=== PATIENT | male | born 1975 | race African-American/Black ===

== ENCOUNTER 2017-02-25 06:57 | Emergency (ER) | payer SELFPAY ==
[~2017-02-25] VITALS: Ht 193 cm; Wt 87.4 kg
[2017-02-25] MEDS ORDERED: HYDROCODONE/ACETAMINOPHEN 5/325MG TABLET PO ONE (08:15)
[2017-02-25 09:30] VITALS: BP 114/83
== END 2017-02-25 09:43 | disposition home or self-care (01) ==
LOC: ER 07:20
DX: S63.501A Unspecified sprain of right wrist, initial encounter (principal); Y08.89XA Assault by other specified means, initial encounter; Y93.89 Activity, other specified; Y92.89 Other specified places as the place of occurrence of the external cause; Z88.0 Allergy status to penicillin; F17.210 Nicotine dependence, cigarettes, uncomplicated
CPT/HCPCS: 73110; 73130; 99284; Z7610

== ENCOUNTER 2018-06-20 02:16 | Emergency (ER) | payer SELFPAY ==
[~2018-06-20] VITALS: Ht 188 cm; Wt 96.0 kg
[2018-06-20] MEDS ORDERED: FLUORESCEIN SODIUM 1MG/STRIP OP ONE (02:45)
[2018-06-20] MEDS ORDERED: TETRACAINE 0.5% OPHTH DROPS 4ML OP ONE (02:45)
[2018-06-20] MEDS ORDERED: HYDROCODONE/ACETAMINOPHEN 5/325MG TABLET PO ONE (03:15)
[2018-06-20 04:36] VITALS: BP 116/81
== END 2018-06-20 04:44 | disposition home or self-care (01) ==
LOC: ER 02:16
DX: S05.11XA Contusion of eyeball and orbital tissues, right eye, initial encounter (principal); S09.8XXA Other specified injuries of head, initial encounter; F12.10 Cannabis abuse, uncomplicated; F17.200 Nicotine dependence, unspecified, uncomplicated; Z88.0 Allergy status to penicillin; Z98.890 Other specified postprocedural states; Y09 Assault by unspecified means; Y93.89 Activity, other specified; Y92.89 Other specified places as the place of occurrence of the external cause
CPT/HCPCS: 99283

== ENCOUNTER 2019-06-23 04:36 | Emergency (ER) | payer SELFPAY ==
[~2019-06-23] VITALS: Ht 188 cm; Wt 210.0 kg
[2019-06-23] MEDS ORDERED: SODIUM CHLORIDE 0.9% 1,000 ML IV ONE (05:28)
[2019-06-23 05:50] LABS: CLARITY URINE CLEAR (CLEAR); COLOR URINE YELLOW (YELLOW); KETONES URINE NEGATIVE (NEGATIVE); LEUKOCYTE ESTERASE URINE NEGATIVE (NEGATIVE); NITRITE URINE NEGATIVE (NEGATIVE); OCCULT BLOOD URINE NEGATIVE (NEGATIVE); PROTEIN URINE NEGATIVE (NEGATIVE); SPECIFIC GRAVITY URINE 1.003 (1.005-1.030); UROBILINOGEN URINE 0.2 E.U./dL (0.2-1.0)
[2019-06-23 06:03] LABS: *AMPHETAMINES SCREEN URINE PRESUMTIVE POSITIVE (NEGATIVE); *BARBITURATES SCREEN URINE NEGATIVE (NEGATIVE)
[2019-06-23 06:04] LABS: *BENZODIAZEPINES SCREEN URINE NEGATIVE (NEGATIVE); *COCAINE SCREEN URINE PRESUMTIVE POSITIVE (NEGATIVE); METHADONE URINE SCREEN NEGATIVE (NEGATIVE)
[2019-06-23 06:05] LABS: CANNABINOID URINE SCREEN PRESUMTIVE POSITIVE (NEGATIVE); OPIATES URINE SCREEN NEGATIVE (NEGATIVE); PHENCYCLIDINE URINE SCREEN NEGATIVE (NEGATIVE)
[2019-06-23 06:23] LABS: BASOPHILS % 0.7 % (0.0-2.0); EOSINOPHILS % 0.2 % (0.0-5.0); HEMATOCRIT. 48.2 % (42.0-52.0); HEMOGLOBIN. 16.6 g/dL (14.0-18.0); LYMPHOCYTES % 15.9 % (20.0-50.0); MEAN CORPUSCULAR HEMOGLOBIN 31.5 pg (28.0-32.0); MEAN CORPUSCULAR VOLUME 91.7 fL (80.0-94.0); MEAN PLATELET VOLUME 8.9 fl (7.4-10.4); MONOCYTES % 9.7 % (2.0-8.0); NEUTROPHILS % 73.5 % (40.0-76.0); PLATELET 218 x1000/uL (130-400); RED BLOOD CELL COUNT 5.26 mill/uL (4.7-6.1); RED CELL DISTRIBUTION WIDTH 13.1 % (11.6-14.6)
[2019-06-23 06:24] LABS: CHLORIDE 107 mEq/L (98-107)
[2019-06-23 06:29] LABS: ETHANOL BLOOD < 10 mg/dL
[2019-06-23 06:31] VITALS: BP 136/80
[2019-06-23] MEDS ORDERED: LORAZEPAM 2MG/ML CPJ IV ONE (06:45)
== END 2019-06-23 07:30 | disposition left against medical advice (07) ==
LOC: ER 04:36
DX: T40.7X1A Poisoning by cannabis (derivatives), accidental (unintentional), initial encounter (principal); R00.2 Palpitations; R07.89 Other chest pain; F12.188 Cannabis abuse with other cannabis-induced disorder; F14.10 Cocaine abuse, uncomplicated; F15.10 Other stimulant abuse, uncomplicated; R03.0 Elevated blood-pressure reading, without diagnosis of hypertension; Y92.89 Other specified places as the place of occurrence of the external cause; F17.210 Nicotine dependence, cigarettes, uncomplicated; Z71.6 Tobacco abuse counseling
CPT/HCPCS: 36415; 71045; 80053; 80305; 80320; 81003; 84484; 85025; 93005; 99284; 99406; J7030; G0480

== ENCOUNTER 2019-07-22 18:54 | Emergency (ER) | payer SELFPAY ==
[~2019-07-22] VITALS: Ht 188 cm; Wt 91.0 kg
[2019-07-22] MEDS ORDERED: VISCOUS LIDOCAINE 2% 15 ML UDC PO STA (23:46)
[2019-07-22] MEDS ORDERED: ONDANSETRON 4MG ODT PO STA (23:46)
[2019-07-22] MEDS ORDERED: MAGNESIUM/ALUMINUM HYDROXIDE/SIMETHICONE 30ML UDC PO STA (23:46)
[2019-07-22] MEDS ORDERED: KETOROLAC 60MG/2ML VIAL IM STA (23:46)
[2019-07-23] MEDS ORDERED: FAMOTIDINE 20MG TABLET PO ONE
[2019-07-23 00:06] LABS: CLARITY URINE CLEAR (CLEAR); COLOR URINE DARK YELLOW (YELLOW); KETONES URINE 2+ (NEGATIVE); LEUKOCYTE ESTERASE URINE TRACE (NEGATIVE); NITRITE URINE NEGATIVE (NEGATIVE); OCCULT BLOOD URINE NEGATIVE (NEGATIVE); PH URINE 7.5 (4.5-8.0); PROTEIN URINE 1+ (NEGATIVE); SPECIFIC GRAVITY URINE 1.024 (1.005-1.030)
[2019-07-23 00:24] LABS: HEMOGLOBIN. 16.7 g/dL (14.0-18.0); MEAN CORPUSCULAR HEMOGLOBIN 31.8 pg (28.0-32.0); MEAN CORPUSCULAR VOLUME 89.6 fL (80.0-94.0); MEAN PLATELET VOLUME 8.7 fl (7.4-10.4); PLATELET 234 x1000/uL (130-400); RED BLOOD CELL COUNT 5.25 mill/uL (4.7-6.1); RED CELL DISTRIBUTION WIDTH 12.9 % (11.6-14.6)
[2019-07-23 00:29] LABS: CHLORIDE 103 mEq/L (98-107)
[2019-07-23 00:34] LABS: ETHANOL BLOOD < 10 mg/dL
[2019-07-23 01:33] LABS: PLATELET ESTIMATE NORMAL
[2019-07-23 01:43] VITALS: BP 130/89
[2019-07-23 10:15] LABS: *AMPHETAMINES SCREEN URINE PRESUMTIVE POSITIVE (NEGATIVE); *BARBITURATES SCREEN URINE NEGATIVE (NEGATIVE); *BENZODIAZEPINES SCREEN URINE NEGATIVE (NEGATIVE); *COCAINE SCREEN URINE PRESUMTIVE POSITIVE (NEGATIVE)
[2019-07-23 10:18] LABS: CANNABINOID URINE SCREEN PRESUMTIVE POSITIVE (NEGATIVE); OPIATES URINE SCREEN NEGATIVE (NEGATIVE); PHENCYCLIDINE URINE SCREEN NEGATIVE (NEGATIVE)
[2019-07-23 10:27] LABS: METHADONE URINE SCREEN NEGATIVE (NEGATIVE)
== END 2019-07-23 01:44 | disposition home or self-care (01) ==
LOC: ER 18:54
DX: K29.20 Alcoholic gastritis without bleeding (principal); F10.10 Alcohol abuse, uncomplicated; F14.10 Cocaine abuse, uncomplicated; F12.10 Cannabis abuse, uncomplicated; Y90.0 Blood alcohol level of less than 20 mg/100 ml; Z88.0 Allergy status to penicillin
CPT/HCPCS: 36415; 80053; 80305; 80320; 81003; 83690; 85025; 96372; 99284; J1885; Q0162; G0480

== ENCOUNTER 2019-08-30 16:34 | Emergency (ER) | payer SELFPAY ==
[~2019-08-30] VITALS: Ht 180.3 cm; Wt 90.0 kg
[2019-08-30] MEDS ORDERED: SODIUM CHLORIDE 0.9% 1,000 ML IV ONE (16:57)
[2019-08-30] MEDS ORDERED: LORAZEPAM 2MG/ML CPJ IM ONE (17:00)
[2019-08-30] MEDS ORDERED: OLANZAPINE 10 MG/VIAL IM ONE (17:00)
[2019-08-30] MEDS ORDERED: TETANUS, DIPHTHERIA, PERTUSSIS VAC/PF 0.5ML (>7YR OLD) IM ONE (17:00)
[2019-08-30 17:42] LABS: BASOPHILS % 0.6 % (0.0-2.0); EOSINOPHILS % 0.6 % (0.0-5.0); HEMATOCRIT. 48.9 % (42.0-52.0); HEMOGLOBIN. 16.9 g/dL (14.0-18.0); LYMPHOCYTES % 24.3 % (20.0-50.0); MEAN CORPUSCULAR HEMOGLOBIN 32.5 pg (28.0-32.0); MEAN CORPUSCULAR VOLUME 93.7 fL (80.0-94.0); MEAN PLATELET VOLUME 8.7 fl (7.4-10.4); MONOCYTES % 10.7 % (2.0-8.0); NEUTROPHILS % 63.8 % (40.0-76.0); PLATELET 221 x1000/uL (130-400); RED BLOOD CELL COUNT 5.22 mill/uL (4.7-6.1); RED CELL DISTRIBUTION WIDTH 14.4 % (11.6-14.6)
[2019-08-30 17:47] LABS: CHLORIDE 110 mEq/L (98-107)
[2019-08-30 17:51] LABS: ETHANOL BLOOD 242 mg/dL
[2019-08-30 20:24] LABS: *COCAINE SCREEN URINE PRESUMTIVE POSITIVE (NEGATIVE); METHADONE URINE SCREEN NEGATIVE (NEGATIVE)
[2019-08-30 20:25] LABS: *AMPHETAMINES SCREEN URINE NEGATIVE (NEGATIVE); *BARBITURATES SCREEN URINE NEGATIVE (NEGATIVE); *BENZODIAZEPINES SCREEN URINE NEGATIVE (NEGATIVE); CANNABINOID URINE SCREEN NEGATIVE (NEGATIVE); OPIATES URINE SCREEN NEGATIVE (NEGATIVE); PHENCYCLIDINE URINE SCREEN NEGATIVE (NEGATIVE)
[2019-08-30 22:45] VITALS: BP 116/72
== END 2019-08-31 00:16 | disposition home or self-care (01) ==
LOC: ER 16:34
DX: T51.8X1A Toxic effect of other alcohols, accidental (unintentional), initial encounter (principal); G92 Toxic encephalopathy; S09.8XXA Other specified injuries of head, initial encounter; S01.511A Laceration without foreign body of lip, initial encounter; F14.10 Cocaine abuse, uncomplicated; Z88.0 Allergy status to penicillin; Y08.89XA Assault by other specified means, initial encounter; Y93.89 Activity, other specified; Y99.8 Other external cause status; Y92.89 Other specified places as the place of occurrence of the external cause
CPT/HCPCS: 36415; 70450; 71045; 72170; 73030; 80053; 80305; 80320; 82962; 83690; 83880; 84484; 85025; 86850; 86900; 86901; 90471; 90715; 93005; 96372; 99285; J2060; J3490; J7030; G0480

== ENCOUNTER 2019-10-05 04:36 | Emergency (ER) | payer MEDICAID, OTHER ==
[~2019-10-05] VITALS: Ht 188 cm; Wt 95.0 kg
[2019-10-05] MEDS ORDERED: DEXAMETHASONE 4MG/ML 1ML VIAL IM ONE (06:30)
[2019-10-05] MEDS ORDERED: PEN G BENZ/PEN G PROCAINE CR 1.2 MMU/2 ML IM ONE (06:30)
[2019-10-05] MEDS ORDERED: KETOROLAC 60MG/2ML VIAL IM ONE (06:30)
[2019-10-05] MEDS ORDERED: CLINDAMYCIN HCL 150MG CAPSULE PO ONE (07:30)
[2019-10-05 08:33] VITALS: BP 124/81
== END 2019-10-05 08:33 | disposition home or self-care (01) ==
LOC: ER 04:36
DX: J03.90 Acute tonsillitis, unspecified (principal); R59.0 Localized enlarged lymph nodes; F12.10 Cannabis abuse, uncomplicated; F17.200 Nicotine dependence, unspecified, uncomplicated; Z88.0 Allergy status to penicillin
CPT/HCPCS: 96372; 99284; J0558; J1100; J1885

== ENCOUNTER 2019-10-09 02:37 | Emergency (ER) | payer MEDICAID ==
[~2019-10-09] VITALS: Ht 188 cm; Wt 91.0 kg
[2019-10-09] MEDS ORDERED: MORPHINE SULFATE 4 MG/ML CPJ (NOT FOR IM USE) IV STA (03:10)
[2019-10-09] MEDS ORDERED: ONDANSETRON HCL 4MG/2ML INJ IV STA (03:10)
[2019-10-09] MEDS ORDERED: DEXAMETHASONE 10 MG/ML VIAL IV ONE (03:30)
[2019-10-09 03:38] LABS: BASOPHILS % 0.5 % (0.0-2.0); EOSINOPHILS % 0.2 % (0.0-5.0); HEMATOCRIT. 49.3 % (42.0-52.0); HEMOGLOBIN. 17.2 g/dL (14.0-18.0); LYMPHOCYTES % 13.1 % (20.0-50.0); MEAN CORPUSCULAR HEMOGLOBIN 32.3 pg (28.0-32.0); MEAN CORPUSCULAR VOLUME 92.8 fL (80.0-94.0); MEAN PLATELET VOLUME 8.9 fl (7.4-10.4); MONOCYTES % 9.5 % (2.0-8.0); NEUTROPHILS % 76.7 % (40.0-76.0); PLATELET 242 x1000/uL (130-400); RED BLOOD CELL COUNT 5.31 mill/uL (4.7-6.1)
[2019-10-09 03:39] LABS: CHLORIDE 104 mEq/L (98-107)
[2019-10-09] MEDS ORDERED: CLINDAMYCIN 600MG PREMIX 50 ML IV SCH (03:45)
[2019-10-09] MEDS ORDERED: CLINDAMYCIN 600 MG in DEXTROSE 5% WATER 50 ML IV ONE (03:45)
[2019-10-09 04:15] LABS: INR 0.9; PROTHROMBIN TIME 10.3 sec (9.6-11.0)
[2019-10-09 04:41] VITALS: BP 132/79
== END 2019-10-09 04:45 | disposition home or self-care (01) ==
LOC: ER 02:37
DX: J03.90 Acute tonsillitis, unspecified (principal); R03.0 Elevated blood-pressure reading, without diagnosis of hypertension; Z88.0 Allergy status to penicillin
CPT/HCPCS: 36415; 80053; 85025; 85610; 96374; 96375; 99284; J1100; J2270; J2405; J3490; J7060

== ENCOUNTER 2019-10-31 22:25 | Inpatient (IN) | payer MEDICAID, OTHER ==
[~2019-10-31] VITALS: Ht 188 cm; Wt 91.2 kg
[2019-10-31] MEDS ORDERED: MORPHINE SULFATE 4 MG/ML CPJ (NOT FOR IM USE) IV STA (22:43)
[2019-10-31] MEDS ORDERED: ONDANSETRON HCL 4MG/2ML INJ IV STA (22:43)
[2019-10-31] MEDS ORDERED: SODIUM CHLORIDE 0.9% 1,000 ML IV ONE (22:43)
[2019-10-31 23:14] LABS: CHLORIDE 104 mEq/L (98-107)
[2019-10-31] MEDS ORDERED: MIDAZOLAM HCL 2 MG/2 ML VIAL IV ONE (23:15)
[2019-10-31 23:16] LABS: INR 0.9; PARTIAL THROMBOPLASTIN TIME 25.3 sec (23.4-31.0); PROTHROMBIN TIME 10.2 sec (9.6-11.0)
[2019-10-31 23:41] LABS: BASOPHILS % 0.5 % (0.0-2.0); EOSINOPHILS % 0.5 % (0.0-5.0); HEMATOCRIT. 47.5 % (42.0-52.0); HEMOGLOBIN. 16.7 g/dL (14.0-18.0); LYMPHOCYTES % 20.5 % (20.0-50.0); MEAN CORPUSCULAR HEMOGLOBIN 33.1 pg (28.0-32.0); MEAN PLATELET VOLUME 8.8 fl (7.4-10.4); MONOCYTES % 5.5 % (2.0-8.0); PLATELET 249 x1000/uL (130-400); RED BLOOD CELL COUNT 5.05 mill/uL (4.7-6.1); RED CELL DISTRIBUTION WIDTH 13.9 % (11.6-14.6)
[2019-11-01] MEDS ORDERED: IOHEXOL-350 100 ML BOTTLE ONE (01:15)
[2019-11-01] MEDS ORDERED: ASPIRIN 325MG TABLET PO ONE (01:30)
[2019-11-01 05:15] VITALS: BP 131/90
[2019-11-01] MEDS ORDERED: DOCUSATE SODIUM 100MG CAPSULE PO PRN (07:00)
[2019-11-01] MEDS ORDERED: ACETAMINOPHEN 325MG TABLET PO PRN (07:00)
[2019-11-01] MEDS ORDERED: CLONIDINE 0.1MG TABLET PO PRN (07:00)
[2019-11-01] MEDS ORDERED: IPRATROPIUM/ALBUTEROL 0.5-3(2.5)MG/3ML NEB HHN PRN (07:00)
[2019-11-01] MEDS ORDERED: HYDRALAZINE 20MG/ML VIAL IV PRN (07:00)
[2019-11-01] MEDS ORDERED: DIPHENHYDRAMINE 50MG/ML VIAL IV PRN (07:00)
[2019-11-01] MEDS ORDERED: MAGNESIUM/ALUMINUM HYDROXIDE/SIMETHICONE 30ML UDC PO PRN (07:00)
[2019-11-01] MEDS ORDERED: GUAIFENESIN 200MG/10ML SUGAR FREE UDC PO PRN (07:00)
[2019-11-01] MEDS ORDERED: LORAZEPAM 2MG/ML CPJ IV PRN (07:00)
[2019-11-01] MEDS ORDERED: HYDROCODONE/ACETAMINOPHEN 10/325MG TABLET PO PRN (07:00)
[2019-11-01] MEDS ORDERED: ONDANSETRON HCL 4MG/2ML INJ IV PRN (07:00)
[2019-11-01 08:00] VITALS: BP_SYST 130; BP_SYST 136; BP_DIAS 76; BP_DIAS 88
[2019-11-01] MEDS: ENOXAPARIN 40MG/0.4ML SYR SUBCUT SCH (08:42)
[2019-11-01] MEDS: MORPHINE SULFATE 2 MG/ML CPJ (NOT FOR IM USE) IV PRN ×2 (08:43→18:11)
[2019-11-01 12:00] VITALS: BP 128/79
[2019-11-01] MEDS: SODIUM CHLORIDE 0.9% INJ 3ML FLUSH IVF SCH ×2 (13:09→21:03)
[2019-11-01 15:53] LABS: CREATINE KINASE 535 IU/L (39-308)
[2019-11-01 15:54] LABS: CREATINE KINASE MB FRACTION 2.4 ng/mL (0.5-3.6)
[2019-11-01 16:00] VITALS: BP 116/80
[2019-11-02] VITALS: BP 123/86
[2019-11-02 00:31] LABS: CREATINE KINASE 467 IU/L (39-308)
[2019-11-02 00:32] LABS: CREATINE KINASE MB FRACTION 1.9 ng/mL (0.5-3.6)
[2019-11-02 04:00] VITALS: BP 124/77
[2019-11-02] MEDS: MORPHINE SULFATE 2 MG/ML CPJ (NOT FOR IM USE) IV PRN (04:15)
[2019-11-02] MEDS: SODIUM CHLORIDE 0.9% INJ 3ML FLUSH IVF SCH ×2 (04:16→15:41)
[2019-11-02 06:52] LABS: CHLORIDE 105 mEq/L (98-107)
[2019-11-02 07:04] LABS: HEMATOCRIT. 43.6 % (42.0-52.0); HEMOGLOBIN. 15.1 g/dL (14.0-18.0); MEAN CORPUSCULAR HEMOGLOBIN 32.8 pg (28.0-32.0); MEAN CORPUSCULAR VOLUME 94.5 fL (80.0-94.0); MEAN PLATELET VOLUME 9.2 fl (7.4-10.4); PLATELET 185 x1000/uL (130-400); RED BLOOD CELL COUNT 4.61 mill/uL (4.7-6.1); RED CELL DISTRIBUTION WIDTH 13.3 % (11.6-14.6)
[2019-11-02 08:00] VITALS: BP 118/68
[2019-11-02] MEDS: ENOXAPARIN 40MG/0.4ML SYR SUBCUT SCH (09:25)
[2019-11-02 10:25] LABS: PLATELET ESTIMATE NORMAL
[2019-11-02 12:00] VITALS: BP 125/87
[2019-11-02 18:36] LABS: *AMPHETAMINES SCREEN URINE NEGATIVE (NEGATIVE); *BARBITURATES SCREEN URINE NEGATIVE (NEGATIVE); *BENZODIAZEPINES SCREEN URINE NEGATIVE (NEGATIVE); *COCAINE SCREEN URINE PRESUMTIVE POSITIVE (NEGATIVE); METHADONE URINE SCREEN NEGATIVE (NEGATIVE); OPIATES URINE SCREEN PRESUMTIVE POSITIVE (NEGATIVE)
[2019-11-02 18:37] LABS: CANNABINOID URINE SCREEN NEGATIVE (NEGATIVE); PHENCYCLIDINE URINE SCREEN NEGATIVE (NEGATIVE)
== END 2019-11-02 17:05 | disposition left against medical advice (07) | DRG 115 ==
LOC: ER 22:25 → MICUSO 11-01 01:45 → 5WST 11-01 05:02
PROVIDERS: ADMIT Internal Medicine; ATTEND Internal Medicine
DX: S02.2XXA Fracture of nasal bones, initial encounter for closed fracture (principal); R47.01 Aphasia; F17.210 Nicotine dependence, cigarettes, uncomplicated; S00.03XA Contusion of scalp, initial encounter; S00.83XA Contusion of other part of head, initial encounter; Y09 Assault by unspecified means; Z88.0 Allergy status to penicillin; Y93.89 Activity, other specified; Y92.89 Other specified places as the place of occurrence of the external cause; Y99.8 Other external cause status
CPT/HCPCS: 36415; 70496; 70498; 80053; 80305; 82550; 82553; 84484; 85025; 86850; 86900; 96374; 99291; J1650; J2250; J2270; J2405; J7030; Q9967

== ENCOUNTER 2020-02-10 22:49 | Emergency (ER) | payer SELFPAY ==
[~2020-02-10] VITALS: Ht 188 cm; Wt 100.0 kg
[2020-02-10] MEDS ORDERED: LIDOCAINE HCL/PF 1% 10 MG/ML 5ML VIAL IJ ONE (23:30)
[2020-02-10] MEDS ORDERED: BACITRACIN ZINC OINT UDPKT TOP ONE (23:30)
[2020-02-10] MEDS ORDERED: ACETAMINOPHEN WITH CODEINE 300/30MG TABLET PO ONE (23:30)
[2020-02-11 00:27] VITALS: BP 121/74
== END 2020-02-11 00:36 | disposition home or self-care (01) ==
LOC: ER 22:49
DX: S51.812A Laceration without foreign body of left forearm, initial encounter (principal); Z88.0 Allergy status to penicillin; X58.XXXA Exposure to other specified factors, initial encounter; Y93.89 Activity, other specified; Y92.89 Other specified places as the place of occurrence of the external cause; Y99.8 Other external cause status
CPT/HCPCS: 12002; 99283; J3490

== ENCOUNTER 2020-02-24 12:55 | Emergency (ER) | payer SELFPAY ==
[~2020-02-24] VITALS: Ht 188 cm; Wt 102.0 kg
[2020-02-24 12:57] VITALS: BP 140/93
[2020-02-24] MEDS ORDERED: BACITRACIN ZINC OINT UDPKT TOP ONE (13:30)
== END 2020-02-24 13:40 | disposition home or self-care (01) ==
LOC: ER 13:01
DX: S51.812D Laceration without foreign body of left forearm, subsequent encounter (principal); Z48.02 Encounter for removal of sutures; X58.XXXD Exposure to other specified factors, subsequent encounter
CPT/HCPCS: 99282; Z7610

== ENCOUNTER 2023-11-25 17:10 | Emergency (ER) | payer OTHER ==
[~2023-11-25] VITALS: Ht 182.9 cm; Wt 80.0 kg
[2023-11-25 17:14] VITALS: O2SAT 100
[2023-11-25] MEDS: FAMOTIDINE 20MG/2ML VIAL IV ONE (17:28)
[2023-11-25] MEDS: DIPHENHYDRAMINE 50MG/ML VIAL IV ONE (17:28)
[2023-11-25] MEDS: EPINEPHRINE 1:1000 1 MG/ML AMP IM ONE (17:28)
[2023-11-25] MEDS: METHYLPREDNISOLONE SOD SUCC 125MG/2ML (ACT-O-VIAL) IV ONE (17:29)
[2023-11-25 17:44] LABS: BASOPHILS % 1.5 % (0.0-2.0); EOSINOPHILS % 1.6 % (0.0-5.0); HEMATOCRIT. 43.6 % (42.0-52.0); HEMOGLOBIN. 14.9 g/dL (14.0-18.0); LYMPHOCYTES % 62.1 % (20.0-50.0); MEAN CORPUSCULAR HEMOGLOBIN 33.3 pg (28.0-32.0); MEAN CORPUSCULAR HGB CONC 34.2 g/dL (31.0-37.0); MEAN CORPUSCULAR VOLUME 97.5 fL (80.0-94.0); MEAN PLATELET VOLUME 8.5 fl (7.4-10.4); MONOCYTES % 8.3 % (2.0-8.0); NEUTROPHILS % 26.5 % (40.0-76.0); PLATELET 217 x1000/uL (130-400); RED BLOOD CELL COUNT 4.47 mill/uL (4.7-6.1); RED CELL DISTRIBUTION WIDTH 13.8 % (11.6-14.6); WHITE BLOOD COUNT 6.3 x1000/uL (4.5-11.0)
[2023-11-25 17:53] LABS: CHLORIDE 101 mEq/L (98-107); POTASSIUM 3.6 mEq/L (3.5-5.1); SODIUM 141 mEq/L (136-145)
[2023-11-25 17:54] LABS: CARBON DIOXIDE 24 mEq/L (21-32)
[2023-11-25 17:59] LABS: GLUCOSE 134 mg/dL (70-105); UREA NITROGEN BLOOD 8 mg/dL (9-23)
[2023-11-25] MEDS ORDERED: DIPH25TA62 MT (19:08)
[2023-11-25] MEDS ORDERED: P20 MT (19:08)
[2023-11-25] MEDS ORDERED: EPIN0.3P3 IM (19:08)
[2023-11-25 21:43] VITALS: BP 133/84; PULSE 74; RESP 13; TEMP 98.7
== END 2023-11-25 21:49 | disposition home or self-care (01) ==
LOC: ER 17:10
DX: T78.1XXA Other adverse food reactions, not elsewhere classified, initial encounter (principal); Z88.0 Allergy status to penicillin; Z91.013 Allergy to seafood; X58.XXXA Exposure to other specified factors, initial encounter
CPT/HCPCS: 99284; 96374; 96375; 80048; 85025; 36415; 96372; J1200; J3490 ×2; J2919

== ENCOUNTER 2024-02-11 11:20 | Emergency (ER) | payer OTHER ==
[~2024-02-11] VITALS: Ht 188 cm; Wt 100.0 kg
[~2024-02-11 11:20] MED LIST: DIPH25TA62 MT; EPIN0.3P3 IM; P20 MT
[2024-02-11 11:29] VITALS: O2SAT 98
[2024-02-11] MEDS ORDERED: NAPR-1176 MT (13:25)
[2024-02-11] MEDS: KETOROLAC 15MG/ML VIAL IM ONE (13:44)
[2024-02-11 13:46] VITALS: BP 143/82; PULSE 92; RESP 16; TEMP 36.72516; O2SAT 98
== END 2024-02-11 13:47 | disposition home or self-care (01) ==
LOC: ER 11:20
DX: M25.461 Effusion, right knee (principal); Z98.890 Other specified postprocedural states; Z79.899 Other long term (current) drug therapy; Z88.0 Allergy status to penicillin; Z91.013 Allergy to seafood
CPT/HCPCS: 99284; 73562; 73590; 96372; J1885